=== PATIENT | male | born 1945 | race Caucasian/White ===

== ENCOUNTER 2017-06-06 08:16 | Emergency (ER) | payer OTHER ==
--- NOTE | 2017-06-06 08:24 | PDOC ---
Suture Removal/Wound Check HPI - History of Present Illness Chief Complaint: Laceration Stated Complaint: CUT MY LEG Time Seen by Provider: 06/06/17 08:18 History Source: Yes: Patient Exam Limitations: Yes: No Limitations Treated at: [facility] ED - Previous ED Treatment Type of procedure performed on last visit: Yes: Laceration Repair Antibiotics Prescribed: No - Onset of Previous Treatment Date of Occurence: 06/06/17 Time of Occurence: 08:00 Comment:: 06/06/17 08:23 THis is a 71 yo M who presents to the ER due to laceration He is currently taking coumadin (last checked this past week - INR 2.3) He was rtaking out the garbage There was a broken glass bottle in the garbage The garbage struck the anterior portion of his leg and resulted in a laceration Pt noted heavy bleeding, pressure dressing applied Tetanus is not up to date Past History - Travel Close contact w/someone who was outside of country & ill: No - Past Medical History Allergies/Adverse Reactions: Allergies No Known Allergies Allergy (Verified 06/06/17 08:17) Suture Removal/Wound Check PE - Physical Exam Laceration/Wound Check Symptoms: reports: Pain, Bleeding Current Severity Level: Mild Comments: 06/06/17 08:24 Laceration located on the anterior lazo Measures 2cm Does not gape one small area of bleeding noted Medical Decision Making - Medical Decision Making 2cm superficial laceration small area of bleeding noted lateral edge of wound No wound gaping Surgicel applied Gauze and pressure dressing applied *DC/Admit/Observation/Transfer Diagnosis at time of Disposition: Laceration of leg not thigh, right Qualifiers: Encounter type: initial encounter Qualified Code(s): S81.811A - Laceration without foreign body, right lower leg, initial encounter - Discharge Dispostion Disposition: HOME Condition at time of disposition: Stable Admit: No - Patient Instructions Printed Discharge Instructions: DI for Minor Laceration, DI for Laceration Repair Steri-Strips Additional Instructions: Mr. Suarez, Thank you for coming to the ER today You MUST take the day off to be pampered :) We have applied a dressing to your leg which will aid in clotting You can remove this dressing in 24 hours Do not get your leg soaking wet for 24 hours You don't need to remove the small piece of gauze which is on your cut to aid in forming a scab This will fall off on its own Please avoid injuring your leg again Please monitor for signs of infection which include redness, swelling, warmth, pain when the area is touched, fevers or chills If you notice this, please come back and see us in the ER
[2017-06-06 08:25] VITALS: BP 134/89; PULSE 72; TEMP 98.3; BMI 24.3
[2017-06-06] MEDS ORDERED: DIPHTH,PERTUSS(ACELL),TET 0.5 ML DISP.SYRIN IM ONE (08:25)
== END 2017-06-06 08:45 | disposition home or self-care (01) ==
LOC: FER 08:16
PROC: 3E0234Z Introduction of Serum, Toxoid and Vaccine into Muscle, Percutaneous Approach (ICD-10-PCS; principal; 2017-06-06)
DX: S81.811A Laceration without foreign body, right lower leg, initial encounter (principal); X58.XXXA Exposure to other specified factors, initial encounter; Y93.9 Activity, unspecified; Y92.9 Unspecified place or not applicable
CPT/HCPCS: 90715; 99282-25